=== PATIENT | female | born 1995 ===

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

== ENCOUNTER 2017-01-16 21:25 | Emergency (ER) | payer OTHER ==
[2017-01-16 21:25] VITALS: BMI 40.2
[2017-01-16 21:46] VITALS: BP 115/83; PULSE 95; RESP 18; TEMP 97.9; O2SAT 95
--- NOTE | 2017-01-16 21:57 | C.PDOC ---
History Of Present Illness 21 y/o female c/o left knee pain after slipping and falling onto knee at work today. pt reports prior hx of problems with left knee, sts she has been seen in the ER several times, but never followed up with ortho. no numbness or tingling. pain worse with flexion of knee. Time Seen by Provider: 01/16/17 21:46 Chief Complaint (Nursing): Lower Extremity Problem/Injury Past Medical History Reviewed: Historical Data, Nursing Documentation, Vital Signs Vital Signs: Last Vital Signs Temp 97.9 F 01/16/17 21:43 Pulse 95 H 01/16/17 21:43 Resp 18 01/16/17 21:43 BP 115/83 01/16/17 21:43 Pulse Ox 95 01/16/17 22:46 - Medical History PMH: Back Problems, Bipolar Disorder (DENIED 09/01/16) Denies: Chronic Kidney Disease Surgical History: No Surg Hx - [facility] Procedures EXTRACTION OF PRODUCTS OF CONCEPTION, OTHER, VIA OPENING (08/09/15) MONITORING NOS (06/26/15) REPAIR FEMALE PERINEUM, EXTERNAL APPROACH (08/09/15) TETANUS TOXOID ADMINIST (10/18/14) Family History: States: Unknown Family Hx - Social History Hx Tobacco Use: No Hx Alcohol Use: No Hx Substance Use: No - Immunization History Hx Tetanus Toxoid Vaccination: No Hx Influenza Vaccination: No Hx Pneumococcal Vaccination: No Review Of Systems Constitutional: Negative for: Fever, Chills Cardiovascular: Negative for: Chest Pain Respiratory: Negative for: Cough, Shortness of Breath Gastrointestinal: Negative for: Nausea, Vomiting, Abdominal Pain Physical Exam - Physical Exam Appears: Non-toxic, No Acute Distress, Other (markedly overweight) Skin: Normal Color, Warm, Dry Head: Atraumatic, Normacephalic Neck: Normal ROM, No Midline Cervical Tenderness Extremity: Normal ROM, Tenderness (left distal patella) Neurological/Psych: Oriented x3, Normal Speech, Normal Cognition, Normal Motor, Normal Sensation ED Course And Treatment O2 Sat by Pulse Oximetry: 95 Disposition - Disposition Referrals: Non [facility] Provider, [Primary Care Provider] - Megan Garrison MD [Staff Provider] - Disposition: HOME/ ROUTINE Disposition Time: 23:04 Condition: IMPROVED Instructions: Knee Sprain (ED) Forms: General Discharge Instructions - Clinical Impression Clinical Impression: Sprain of knee
== END 2017-01-16 23:14 | disposition home or self-care (01) ==
LOC: C.ER 21:25 → SUPCPDRO 21:25 → C.ER 23:14
DX: S83.92XA Sprain of unspecified site of left knee, initial encounter (principal); W01.0XXA Fall on same level from slipping, tripping and stumbling without subsequent striking against object, initial encounter; Y92.89 Other specified places as the place of occurrence of the external cause; Y99.0 Civilian activity done for income or pay
CPT/HCPCS: 96372; 99283; J1885

== ENCOUNTER 2017-12-06 19:24 | Emergency (ER) | payer MEDICAID, OTHER ==
[2017-12-06 19:24] VITALS: BMI 40.2
[2017-12-06 19:45] VITALS: O2SAT 99
--- NOTE | 2017-12-06 20:02 | C.PDOC ---
History Of Present Illness 22 year old female presents to the ER with a complaint of a right sided ear ache that radiates to the right side of the neck. Denies fever or chills. Chief Complaint (Nursing): Back Pain History Per: Patient History/Exam Limitations: no limitations Onset/Duration Of Symptoms: Hrs Current Symptoms Are (Timing): Still Present Quality Of Discomfort: Aching Previous Symptoms: None Exacerbating Factor(s): Nothing Recent travel outside of the [place]: No Past Medical History Reviewed: Historical Data, Nursing Documentation, Vital Signs Vital Signs: Last Vital Signs Temp 98.6 F 12/06/17 19:40 Pulse 98 H 12/06/17 19:40 Resp 20 12/06/17 19:40 BP 125/83 12/06/17 19:40 Pulse Ox 99 12/06/17 20:09 - Medical History PMH: Back Problems, Bipolar Disorder (DENIED 09/01/16) - [facility] Procedures EXTRACTION OF PRODUCTS OF CONCEPTION, OTHER, VIA OPENING (08/09/15) MONITORING NOS (06/26/15) REPAIR FEMALE PERINEUM, EXTERNAL APPROACH (08/09/15) TETANUS TOXOID ADMINIST (10/18/14) Family History: States: Unknown Family Hx - Social History Hx Tobacco Use: No Hx Alcohol Use: No Hx Substance Use: No - Immunization History Hx Tetanus Toxoid Vaccination: No Hx Influenza Vaccination: No Hx Pneumococcal Vaccination: No Review Of Systems Constitutional: Negative for: Fever, Chills ENT: Positive for: Ear Pain. Negative for: Throat Pain Respiratory: Negative for: Cough Musculoskeletal: Positive for: Neck Pain Neurological: Negative for: Headache, Dizziness Physical Exam - Physical Exam Appears: Non-toxic, No Acute Distress Skin: Normal Color, Warm, Dry Head: Atraumatic, Normacephalic Eye(s): bilateral: Normal Inspection Ear(s): Left: Normal, Right: Other (TM congestion) Nose: Normal Oral Mucosa: Moist Throat: Normal, No Erythema, No Exudate Neck: Normal, Supple Chest: Symmetrical, No Tenderness Cardiovascular: Rhythm Regular Respiratory: Normal Breath Sounds, No Rales, No Rhonchi, No Wheezing Gastrointestinal/Abdominal: Soft, No Tenderness Neurological/Psych: Oriented x3, Normal Speech ED Course And Treatment O2 Sat by Pulse Oximetry: 99 (Room air) Pulse Ox Interpretation: Normal Disposition Counseled Patient/Family Regarding: Diagnosis - Disposition Referrals: [facility] [Outside] Disposition Time: 20:05 Condition: STABLE Prescriptions: Amoxicillin [Amoxil 500 mg Cap] 500 mg PO TID #30 cap Naproxen [Naprosyn] 1 tab PO BID PRN #25 tab PRN Reason: Pain Instructions: Ear Infections (Otitis Media) (DC) Forms: [facility] (Uzbek) - POA Present On Arrival: None - Clinical Impression Clinical Impression: Otitis media - Scribe Statement The provider has reviewed the documentation as recorded by the Scribdouglas Werner All medical record entries made by the Minoribe were at my direction and personally dictated by me. I have reviewed the chart and agree that the record accurately reflects my personal performance of the history, physical exam, medical decision making, and the department course for this patient. I have also personally directed, reviewed, and agree with the discharge instructions and disposition.
[2017-12-06] MEDS ORDERED: Naproxen 550 mg Tab PO STA (20:07)
[2017-12-06] MEDS ORDERED: Naproxen 550 mg Tab PO ONE (20:14)
[2017-12-06 20:56] VITALS: BP 104/69; PULSE 85; RESP 22; TEMP 97.8
== END 2017-12-06 20:53 | disposition home or self-care (01) ==
LOC: C.ER 19:24
DX: H66.91 Otitis media, unspecified, right ear (principal); Z87.891 Personal history of nicotine dependence

== ENCOUNTER 2018-06-10 15:12 | Emergency (ER) | payer OTHER ==
[2018-06-10 15:13] VITALS: BMI 40.2
--- NOTE | 2018-06-10 16:19 | C.PDOC ---
History Of Present Illness 22 y/o female presents to ED with c/o low abdominal cramping pain and vaginal spotting after having rough sexual intercourse last night. Patient states she notes blood when wiping after urinating. denies history of gonorrhea or chlamydia, vaginal discharge, dysuria or any other complaints at this time. LMP 05/30/18 Time Seen by Provider: 06/10/18 15:44 Chief Complaint (Nursing): Female Genitourinary History Per: Patient History/Exam Limitations: no limitations Onset/Duration Of Symptoms: Days Current Symptoms Are (Timing): Still Present Quality Of Discomfort: Cramping Past Medical History Reviewed: Historical Data, Nursing Documentation, Vital Signs Vital Signs: Last Vital Signs Temp 98.2 F 06/10/18 17:35 Pulse 78 06/10/18 17:35 Resp 18 06/10/18 17:35 BP 118/77 06/10/18 17:35 Pulse Ox 97 06/10/18 20:42 - Medical History PMH: Back Problems, Bipolar Disorder Surgical History: No Surg Hx - [facility] Procedures EXTRACTION OF PRODUCTS OF CONCEPTION, OTHER, VIA OPENING (08/09/15) MONITORING NOS (06/26/15) REPAIR FEMALE PERINEUM, EXTERNAL APPROACH (08/09/15) TETANUS TOXOID ADMINIST (10/18/14) Family History: States: No Known Family Hx - Social History Hx Tobacco Use: No Hx Alcohol Use: Yes Hx Substance Use: No - Immunization History Hx Tetanus Toxoid Vaccination: (unk) Hx Influenza Vaccination: No Hx Pneumococcal Vaccination: No Review Of Systems Constitutional: Negative for: Fever, Chills Gastrointestinal: Positive for: Abdominal Pain. Negative for: Nausea, Vomiting , Diarrhea Genitourinary: Positive for: Vaginal Bleeding. Negative for: Dysuria, Vaginal Discharge Physical Exam - Physical Exam Appears: Non-toxic, No Acute Distress Skin: Warm, Dry, No Rash Head: Atraumatic, Normacephalic Eye(s): bilateral: Normal Inspection Oral Mucosa: Moist Neck: Supple Cardiovascular: Rhythm Regular Respiratory: Normal Breath Sounds, No Rales, No Rhonchi, No Wheezing Gastrointestinal/Abdominal: Soft, No Tenderness, No Guarding, No Rebound Pelvic: No Vaginal Bleeding, No Vaginal Discharge, Cervical Motion Tenderness, No Cervix Open, Other (erythema around closed cervix) Neurological/Psych: Oriented x3, Normal Speech, Normal Cognition ED Course And Treatment O2 Sat by Pulse Oximetry: 97 (RA) Pulse Ox Interpretation: Normal Medical Decision Making Medical Decision Making: Plan: POC urine preg, UA ordered. GC/Chlamydia ordered. Progress: D/W patient +CMT after rough sex. Patient reports condoms always used during intercourse and perfers not to be treated for STIs. Patient thinks pain is from intercourse and reports if tests come back positive, she and partner will get treated. pt with decreased pain after toradol. Disposition Counseled Patient/Family Regarding: Studies Performed, Diagnosis, Need For Followup - Disposition Referrals: [facility] [Outside] [facility] [Outside] Disposition: HOME/ ROUTINE Disposition Time: 17:26 Condition: IMPROVED Additional Instructions: Please refrain from sexual intercourse until feeling better. Tylenol or Motrin for pain. Follow up with your social services director or in medical/women's clinic. If test results come back positive,m both you and your partner need to be treated. Instructions: Acute Pelvic Pain (DC) Forms: General Discharge Instructions, Work/School/Gym Excuse, [facility] (South Korean) - Clinical Impression Clinical Impression: Pelvic pain - PA / [employer] / Resident Statement MD/DO has reviewed & agrees with the documentation as recorded. - Scribe Statement The provider has reviewed the documentation as recorded by the Yamileth Rushing All medical record entries made by the Yamileth were at my direction and personally dictated by me. I have reviewed the chart and agree that the record accurately reflects my personal performance of the history, physical exam, medical decision making, and the department course for this patient. I have also personally directed, reviewed, and agree with the discharge instructions and disposition.
[2018-06-10 16:26] LABS: SQUAMOUS EPITHIAL 6 /hpf (0-5); URINE BILIRUBIN NEGATIVE (NEGATIVE); URINE BLOOD 1+ (NEGATIVE); URINE CLARITY Clear (Clear); URINE COLOR Yellow (YELLOW); URINE GLUCOSE (UA) NORMAL (Normal); URINE LEUKOCYTE ESTERASE NEG Leu/uL (Negative); URINE PROTEIN NEGATIVE (NEGATIVE); URINE UROBILINOGEN NORMAL mg/dL (0.2-1.0)
[2018-06-10 17:36] VITALS: BP 118/77; PULSE 78; RESP 18; TEMP 98.2
[2018-06-10 20:42] VITALS: O2SAT 97
== END 2018-06-10 17:36 | disposition home or self-care (01) ==
LOC: C.ER 15:12
DX: R10.2 Pelvic and perineal pain (principal)
CPT/HCPCS: 81001; 87491; 87591; 96372; 99283; J1885

== ENCOUNTER 2018-06-21 19:29 | Emergency (ER) | payer SELFPAY ==
[2018-06-21 19:30] VITALS: BMI 40.2
[2018-06-21 19:43] VITALS: O2SAT 100
--- NOTE | 2018-06-21 19:54 | C.PDOC ---
History Of Present Illness 22 y/o female presents to the ED complaining of right-sided headache since midnight of last night. Denies trauma or fall. States she has a history of similar headaches, which occur frequently and usually resolve with Tylenol. Patient took Tylenol last night with no relief, and was unable to sleep. She then took Advil and Tylenol this afternoon without improvement, prompting her to come in. Pain is associated with right ear pain, which radiates toward the right posterior head. Patient denies prior history of migraines and has never seen neurology for her recurrent headaches. Otherwise she denies any associated fever, chills, night sweats, change in vision, dizziness, nausea, vomiting, photophobia, numbness, tingling, or weakness. Time Seen by Provider: 06/21/18 19:51 Chief Complaint (Nursing): Headache History Per: Patient History/Exam Limitations: no limitations Onset/Duration Of Symptoms: Days Current Symptoms Are (Timing): Still Present Preceeding Symptoms: None Past Medical History Reviewed: Historical Data, Nursing Documentation, Vital Signs Vital Signs: Last Vital Signs Temp 98.5 F 06/21/18 22:18 Pulse 83 06/21/18 22:18 Resp 20 06/21/18 22:18 BP 117/74 06/21/18 22:18 Pulse Ox 100 06/21/18 22:18 - Medical History PMH: Back Problems, Bipolar Disorder Denies: Chronic Kidney Disease - [facility] Procedures EXTRACTION OF PRODUCTS OF CONCEPTION, OTHER, VIA OPENING (08/09/15) MONITORING NOS (06/26/15) REPAIR FEMALE PERINEUM, EXTERNAL APPROACH (08/09/15) TETANUS TOXOID ADMINIST (10/18/14) Family History: States: Unknown Family Hx - Social History Hx Tobacco Use: No Hx Alcohol Use: Yes Hx Substance Use: No - Immunization History Hx Tetanus Toxoid Vaccination: (unk) Hx Influenza Vaccination: No Hx Pneumococcal Vaccination: No Review Of Systems Constitutional: Negative for: Fever, Chills, Sweats Eyes: Negative for: Vision Change ENT: Positive for: Ear Pain (right). Negative for: Ear Discharge Cardiovascular: Negative for: Chest Pain Respiratory: Negative for: Shortness of Breath Gastrointestinal: Negative for: Nausea, Vomiting Musculoskeletal: Negative for: Neck Pain Neurological: Positive for: Headache (right-sided). Negative for: Weakness, Numbness (or tingling), Incoordination, Change in Speech, Dizziness, Other ( photophobia) Physical Exam - Physical Exam Appears: Non-toxic, No Acute Distress Skin: Warm, Dry Head: Atraumatic, Normacephalic, No Tenderness (no b/l temporal pain, no b/l mastoid pain or erythema), No Swelling Eye(s): bilateral: Normal Inspection, PERRL, EOMI, Other (No visual deficits) Ear(s): Bilateral: Normal Oral Mucosa: Moist Neck: Normal, Normal ROM, Trachea Midline, No Midline Cervical Tenderness, No Paracervical Tenderness, Supple, Other (negative kernig's and brudzinskis) Chest: Symmetrical Cardiovascular: Rhythm Regular, Other (no rub) Respiratory: No Rales, No Rhonchi, No Wheezing Gastrointestinal/Abdominal: Soft, No Tenderness, No Distention Extremity: Bilateral: Atraumatic, Normal Color And Temperature, Normal ROM Pulses: Left Dorsalis Pedis: Normal, Right Dorsalis Pedis: Normal Neurological/Psych: Oriented x3, Normal Speech, Normal Cognition, Normal Cranial Nerves, No Cerebellar Signs, Normal Motor, Normal Sensation, Other (No focal deficits, no cerebellar signs) Gait: Steady Other Neurological Findings: No Facial Palsy, No Forehead Sparing Extremity: Right: No Drift, Left: No Drift, Upper: No Drift, Lower: No Drift ED Course And Treatment - Laboratory Results Result Diagrams: 06/21/18 20:11 06/21/18 20:11 O2 Sat by Pulse Oximetry: 100 (RA) Pulse Ox Interpretation: Normal - CT Scan/US Head CT Other Rad Studies (CT/US): Read By Radiologist, Radiology Report Reviewed CT/US Interpretation: FINDINGS: Brain: Normal. No hemorrhage. No significant white matter disease. No edema. Ventricles: Normal. No ventriculomegaly. Bones /joints: Normal. No acute fracture. Sinuses: Normal as visualized. No acute sinusitis. Mastoid air cells: Normal as visualized. No mastoid effusion. Soft tissues: Normal. IMPRESSION: No acute findings. Medical Decision Making Medical Decision Making: Impression: 22y/o female with right-sided headache, with hx of similar recurrent headaches, not the worst headache of her life, no thunder clap onset. No shooting spark like pain going down into mouth. Pt notes she has a hx of headaches, likely migraines. No FND. No meningeal signs on exam. Will seek imaging and labs. Plan: --Urine preg --Head CT --CMP --CBC --Reglan 10 mg IVP --NSS IV fluids 2121 labs largely unremarkable Pending imaging 2027 CT head unremarkable pt notes improvement in pain 0/10 repeat neuro exam unremarkable clear for d/c home w/ neuro Disposition - Disposition Referrals: Non [facility] Provider, [Non-Staff] - Disposition Time: 22:31 Condition: GOOD Forms: [employer] (Australian) - Clinical Impression Clinical Impression: Migraine - Scribe Statement The provider has reviewed the documentation as recorded by the Scribe (Joyce Combs) Provider Attestation: All medical record entries made by the Scribe were at my direction and personally dictated by me. I have reviewed the chart and agree that the record accurately reflects my personal performance of the history, physical exam, medical decision making, and the department course for this patient. I have also personally directed, reviewed, and agree with the discharge instructions and disposition.
[2018-06-21] MEDS ORDERED: Sodium Chloride 0.9% 1,000 ML IV ONE (19:55)
[2018-06-21 20:14] LABS: HEMOGLOBIN 12.8 g/dL (11.0-16.0); MEAN CELL VOLUME 88.7 fL (81.0-99.0); MEAN CORPUSCULAR HEMOGLOBIN 30.3 pg (27.0-31.0); MEAN CORPUSCULAR HGB CONC 34.2 g/dL (33.0-37.0); MEAN PLATELET VOLUME 5.9 fL (7.2-11.7); RBC 4.23 Mil/uL (3.80-5.20); RED CELL DISTRIBUTION WIDTH 13.3 % (11.5-14.5); WHITE BLOOD COUNT 13.2 K/uL (4.8-10.8)
[2018-06-21] MEDS ORDERED: Sodium Chloride 0.9% 1,000 ML ONE (20:17)
[2018-06-21 20:31] LABS: ALB/GLOB RATIO 1.3 (1.0-2.1); ALBUMIN 4.3 g/dL (3.5-5.0); ALT/SGPT 57 U/L (9-52); AST/SGOT 30 U/L (14-36); BLOOD UREA NITROGEN 11 mg/dL (7-17); CALCIUM 9.4 mg/dl (8.6-10.4); GFR NON-AFRICAN AMERICAN > 60
[2018-06-21] MEDS ORDERED: Apap-Butalbital-Caffeine 325-50-40mg Tab PO STA (21:51)
[2018-06-21] MEDS ORDERED: Apap-Butalbital-Caffeine 325-50-40mg Tab ONE (21:56)
[2018-06-21 22:19] VITALS: BP 117/74; PULSE 83; RESP 20; TEMP 98.5
--- NOTE | 2018-06-22 06:47 | CT ---
Date of service: 06/21/2018 PROCEDURE: CT HEAD WITHOUT CONTRAST. HISTORY: headache COMPARISON: None available. TECHNIQUE: Axial computed tomography images were obtained through the head/brain without intravenous contrast. Radiation dose: Total exam DLP = 1127 mGy-cm. This CT exam was performed using one or more of the following dose reduction techniques: Automated exposure control, adjustment of the mA and/or kV according to patient size, and/or use of iterative reconstruction technique. FINDINGS: HEMORRHAGE: No intracranial hemorrhage. BRAIN: No mass effect or edema. No atrophy or chronic microvascular ischemic changes. VENTRICLES: Unremarkable. No hydrocephalus. CALVARIUM: Unremarkable. PARANASAL SINUSES: Unremarkable as visualized. No significant inflammatory changes. MASTOID AIR CELLS: Unremarkable as visualized. No inflammatory changes. OTHER FINDINGS: None. IMPRESSION: No acute intracranial abnormality. If symptoms persists, consider correlation with MRI. These findings were preliminarily reported at 9:33 p.m. on 06/21/[address] Myrna Eugene from [facility].
== END 2018-06-21 22:58 | disposition home or self-care (01) ==
LOC: C.ER 19:29 → SUPCPDRO 19:29 → C.ER 22:58
DX: G43.909 Migraine, unspecified, not intractable, without status migrainosus (principal)
CPT/HCPCS: 70450; 80053; 85027; 96361; 96374; 96375; 99284; J1885; J2765; J7030

== ENCOUNTER 2018-07-06 06:52 | Emergency (ER) | payer OTHER ==
[2018-07-06 07:15] VITALS: BMI 42.0
[2018-07-06 07:19] VITALS: BP 142/98; PULSE 82; RESP 20; TEMP 97.6; O2SAT 95
--- NOTE | 2018-07-06 07:40 | C.PDOC ---
History Of Present Illness 23-year-old female, presents to the emergency department with complaints of of dental pain to right lower tooth x1 year. Patient states pain has been worsening over the past few days prompting visit. States she took Motrin and Tylenol prior to arrival. pt has not seen a dentist for this pain. No other complaints at this time. Time Seen by Provider: 07/06/18 07:12 Chief Complaint (Nursing): Dental Pain History Per: Patient History/Exam Limitations: no limitations Current Symptoms Are (Timing): Still Present Severity: Moderate Quality: Positive for: Sharp, Aching Past Medical History Reviewed: Historical Data, Nursing Documentation, Vital Signs Vital Signs: Last Vital Signs Temp 97.6 F 07/06/18 07:16 Pulse 82 07/06/18 07:16 Resp 20 07/06/18 07:16 BP 142/98 H 07/06/18 07:16 Pulse Ox 95 07/06/18 07:16 - Medical History PMH: Back Problems, Bipolar Disorder Denies: Chronic Kidney Disease Surgical History: No Surg Hx - [facility] Procedures EXTRACTION OF PRODUCTS OF CONCEPTION, OTHER, VIA OPENING (08/09/15) MONITORING NOS (06/26/15) REPAIR FEMALE PERINEUM, EXTERNAL APPROACH (08/09/15) TETANUS TOXOID ADMINIST (10/18/14) Family History: States: No Known Family Hx - Social History Hx Tobacco Use: No Hx Alcohol Use: Yes Hx Substance Use: No - Immunization History Hx Tetanus Toxoid Vaccination: (unk) Hx Influenza Vaccination: No Hx Pneumococcal Vaccination: No Review Of Systems Constitutional: Negative for: Fever, Chills ENT: Positive for: Other (dental pain) Gastrointestinal: Negative for: Nausea, Vomiting Musculoskeletal: Negative for: Neck Pain Physical Exam - Physical Exam Appears: Non-toxic, No Acute Distress Skin: Warm, Dry, No Rash Head: Atraumatic, Normacephalic Eye(s): bilateral: Normal Inspection, PERRL, EOMI Nose: Normal Oral Mucosa: Moist Lips: Normal Appearing Teeth: Caries (lower right molar), Tender To Palpation Gingiva: No Swelling, No Bleeding, No Abscess Throat: No Erythema, No Exudate, No Drooling, No Mass Neck: Normal ROM Respiratory: No Accessory Muscle Use Back: Normal Inspection Extremity: Normal ROM, No Deformity Neurological/Psych: Oriented x3, Normal Speech ED Course And Treatment O2 Sat by Pulse Oximetry: 95 Pulse Ox Interpretation: Normal (RA) Progress Note: Treated with tramadol and PCN. Discharged in stable condition Reassessment Condition: Improved Disposition Counseled Patient/Family Regarding: Diagnosis, Need For Followup, Rx Given - Disposition Referrals: [facility] [Outside] [facility] [Outside] Counts Include [facility] [Outside] Disposition: HOME/ ROUTINE Disposition Time: 08:00 Condition: STABLE Additional Instructions: Follow up at dental clinic for further evaluation Prescriptions: Penicillin VK [Penicillin VK Tab] 1 tab PO TID #15 tab Instructions: Tooth Abscess (DC), Dental Pain (DC) Forms: [employer] [facility] (Portuguese), Work Excuse Print Language: TAMAZIGHT - POA Present On Arrival: None - Clinical Impression Clinical Impression: Dental caries, Dental abscess - Scribe Statement The provider has reviewed the documentation as recorded by the Scribe (Gary Garrison) All medical record entries made by the Scribe were at my direction and personally dictated by me. I have reviewed the chart and agree that the record accurately reflects my personal performance of the history, physical exam, medical decision making, and the department course for this patient. I have also personally directed, reviewed, and agree with the discharge instructions and disposition.
== END 2018-07-06 07:59 | disposition home or self-care (01) ==
LOC: C.ER 06:52
DX: K02.9 Dental caries, unspecified (principal); K04.7 Periapical abscess without sinus

== ENCOUNTER 2018-09-25 22:06 | Emergency (ER) | payer SELFPAY ==
[2018-09-25 22:07] VITALS: BMI 42.0
[2018-09-25 22:21] VITALS: BP 122/80; PULSE 102; RESP 22; TEMP 97.7; O2SAT 97
--- NOTE | 2018-09-25 22:54 | C.PDOC ---
History Of Present Illness 23 year old female presents to the ER requesting a note for work. 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 Patient reports she feels fine at this time, only complains of some pain to the right leg after a trip and fall yesterday. Denies weakness or numbness. Time Seen by Provider: 09/25/18 22:18 Chief Complaint (Nursing): Headache History Per: Patient History/Exam Limitations: no limitations Onset/Duration Of Symptoms: Hrs Current Symptoms Are (Timing): Gone Pain Scale Rating Of: 1 Preceeding Symptoms: None Recent travel outside of the [place]: No Past Medical History Reviewed: Historical Data, Nursing Documentation, Vital Signs Vital Signs: Last Vital Signs Temp 97.7 F 09/25/18 22:16 Pulse 102 H 09/25/18 22:16 Resp 22 09/25/18 22:16 BP 122/80 09/25/18 22:16 Pulse Ox 97 09/25/18 22:16 - Medical History PMH: Back Problems, Bipolar Disorder Denies: Chronic Kidney Disease - [employer] Procedures EXTRACTION OF PRODUCTS OF CONCEPTION, OTHER, VIA OPENING (08/09/15) MONITORING NOS (06/26/15) REPAIR FEMALE PERINEUM, EXTERNAL APPROACH (08/09/15) TETANUS TOXOID ADMINIST (10/18/14) Family History: States: Unknown Family Hx - Social History Hx Tobacco Use: No Hx Alcohol Use: Yes Hx Substance Use: No - Immunization History Hx Tetanus Toxoid Vaccination: (unk) Hx Influenza Vaccination: No Hx Pneumococcal Vaccination: No Review Of Systems Constitutional: Negative for: Fever, Chills ENT: Negative for: Ear Pain Cardiovascular: Negative for: Chest Pain, Edema Respiratory: Negative for: Cough Gastrointestinal: Negative for: Nausea, Vomiting Musculoskeletal: Positive for: Leg Pain (Right). Negative for: Neck Pain Skin: Negative for: Rash Neurological: Negative for: Weakness, Numbness, Headache, Dizziness Physical Exam - Physical Exam Appears: Well, Non-toxic, No Acute Distress Skin: Normal Color, Warm, Dry, No Rash, Ecchymosis (left mid mas) Head: Atraumatic, Normacephalic Eye(s): bilateral: Normal Inspection Oral Mucosa: Moist Neck: Normal ROM Chest: Symmetrical, No Tenderness Cardiovascular: Rhythm Regular, No Friction Rub, No Murmur Respiratory: Normal Breath Sounds, No Rales, No Rhonchi, No Wheezing Gastrointestinal/Abdominal: Soft, No Tenderness Back: Normal Inspection, No Vertebral Tenderness, No Paraspinal Tenderness Extremity: Normal ROM (x4), No Tenderness, No Deformity, No Swelling Pulses: Left Dorsalis Pedis: Normal, Right Dorsalis Pedis: Normal Neurological/Psych: Oriented x3, Normal Speech, Normal Motor, Normal Sensation Gait: Steady ED Course And Treatment O2 Sat by Pulse Oximetry: 97 (Room air) Pulse Ox Interpretation: Normal Medical Decision Making Medical Decision Making: Patient is resting comfortably in the ER in no acute distress, ambulatory with steady gait, vitals are stable, will discharge home. Disposition - Disposition Referrals: [facility] [Outside] Disposition: HOME/ ROUTINE Disposition Time: 22:58 Condition: GOOD Additional Instructions: Follow up with the medical doctor within 1-2 days. return if worsened. 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 - Scribe Statement The provider has reviewed the documentation as recorded by the Scribe Reece Werner All medical record entries made by the Minoribdouglas were at my direction and personally dictated by me. I have reviewed the chart and agree that the record accurately reflects my personal performance of the history, physical exam, medical decision making, and the department course for this patient. I have also personally directed, reviewed, and agree with the discharge instructions and disposition.
== END 2018-09-25 23:01 | disposition home or self-care (01) ==
LOC: C.ER 22:06
DX: S80.11XA Contusion of right lower leg, initial encounter (principal); W01.0XXA Fall on same level from slipping, tripping and stumbling without subsequent striking against object, initial encounter